=== PATIENT | female | born 1990 | race Caucasian/White ===

== ENCOUNTER 2017-01-09 23:43 | Emergency (ER) | payer OTHER ==
[~2017-01-09] VITALS: Ht 165.1 cm; Wt 50.8 kg
[2017-01-09 23:47] VITALS: BP 121/73
--- NOTE | 2017-01-09 23:52 | NUR ---
Patient ambulated to bed 06.
--- NOTE | 2017-01-10 | NUR ---
12 LEAD EKG DONE,REPORT NOTED BY ER-.
--- NOTE | 2017-01-10 00:01 | NUR ---
MD CAME BY BEDSIDE TO EVALUATE PT.
[2017-01-10] MEDS ORDERED: LORazepam 1 MG TAB PO ONE (00:05)
[2017-01-10] MEDS ORDERED: NACL 0.9% 1,000 ML IV ONE (00:05)
--- NOTE | 2017-01-10 00:15 | NUR ---
XRAY at bedside.
--- NOTE | 2017-01-10 00:20 | NUR ---
[id number] IV LINE ESTABLISHED TO THE RIGHT AC. NS 1 LITER @ 150 ML/HR AND ATIVAN 1 MG PO GIVEN ORDERED.
--- NOTE | 2017-01-10 00:24 | NUR ---
PORTABLE CXR DONE.
[2017-01-10 00:28] LABS: BASOPHILS # (AUTO) 0.3 K/uL (0.00-0.22); BASOPHILS % (AUTO) 3.4 % (0.0-2.0); EOSINOPHILS # (AUTO) 0.1 K/uL (0-0.4); EOSINOPHILS % (AUTO) 1.1 % (0.0-4.0); HEMATOCRIT 42.8 % (36-48); HEMOGLOBIN 14.1 g/dL (12.0-16.0); LYMPHOCYTES # (AUTO) 2.6 K/uL (2.5-16.5); LYMPHOCYTES % (AUTO) 32.1 % (20.5-51.1); MEAN CORPUSCULAR HEMOGLOBIN 29 pg (27-31); MEAN CORPUSCULAR HGB CONC 33 g/dL (33-37); MEAN CORPUSCULAR VOLUME 88 fL (80-94); MONOCYTES # (AUTO) 0.5 K/uL (0.8-1.0); MONOCYTES % (AUTO) 6.9 % (1.7-9.3); NEUTROPHILS # (AUTO) 4.5 K/uL (1.8-7.7); NEUTROPHILS % (AUTO) 56.5 % (42.2-75.2); PLATELET COUNT (AUTO) 168 K/uL (140-450); RED BLOOD CELL COUNT(AUTO) 4.86 MIL/uL (4.20-5.40); RED CELL DISTRIBUTION WIDTH 12.3 % (11.6-13.7)
[2017-01-10 00:36] LABS: APPEARANCE,URINE CLEAR (CLEAR); BILIRUBIN,URINE NEGATIVE (NEGATIVE); BLOOD, URINE 2+ (NEGATIVE); COLOR,URINE YELLOW (YELLOW); LEUKOCYTE ESTERASE ,URINE NEGATIVE (NEGATIVE); NITRITE, URINE NEGATIVE (NEGATIVE); UGLUCOSE NEGATIVE (NEGATIVE)
[2017-01-10 00:40] LABS: RBC,URINE 0-5 (RARE) /HPF (0-5); WBC,URINE 0-5 (RARE) /HPF (0-5)
[2017-01-10 00:44] LABS: BARBITURATE, URINE NEG. ng/ml (NEG <=200); BENZODIAZEPINE, URINE NEG. ng/mL (NEG <=200); CANNABINOID, URINE POS. ng/mL (NEG <=50); COCAINE, URINE NEG. ng/mL (NEG <=300); OPIATE, URINE POS. ng/mL (NEG <=2000); PHENCYCLIDINE SCREEN,URINE NEG. ng/mL (NEG <=25)
[2017-01-10 00:44] LABS: ALBUMIN 4.1 g/dL (3.4-5.0); ANION GAP 13.1 (8-16); CARBON DIOXIDE 30.3 mmol/L (21-32); CREATININE 0.7 mg/dL (0.6-1.3); POTASSIUM 3.4 mmol/L (3.5-5.1); TOTAL BILIRUBIN 0.4 mg/dL (0.0-1.0)
--- NOTE | 2017-01-10 01:27 | NUR ---
MD BACK AT BEDSIDE TO RE-EVALAUTE AND DISCUSS PLAN OF CARE WITH PATIENT.
--- NOTE | 2017-01-10 01:37 | NUR ---
Patient discharged with v/s stable. Written and verbal after care instructions given and explained. Patient verbalized understanding. Ambulatory with steady gait. All questions addressed prior to discharge. Advised to follow up with PMD.
[2017-01-10 01:40] VITALS: BP 142/73
== END 2017-01-10 01:37 | disposition home or self-care (01) ==
LOC: MED 23:43
DX: R07.89 Other chest pain (principal); F19.10 Other psychoactive substance abuse, uncomplicated; F12.10 Cannabis abuse, uncomplicated; F41.9 Anxiety disorder, unspecified; F17.210 Nicotine dependence, cigarettes, uncomplicated
CPT/HCPCS: 36415; 71010; 80053; 80305; 81001; 81025; 83880; 84484; 85025; 96360; 99285; Q0092

== ENCOUNTER 2018-04-20 16:45 | Emergency (ER) | payer MEDICAID, OTHER ==
[~2018-04-20] VITALS: Ht 167.6 cm; Wt 59.0 kg
[2018-04-20 16:56] VITALS: BP 122/74
[2018-04-20 18:30] VITALS: BP 119/82
== END 2018-04-20 18:30 | disposition home or self-care (01) ==
LOC: MED 16:45
DX: L70.9 Acne, unspecified (principal); M79.641 Pain in right hand; M79.642 Pain in left hand
CPT/HCPCS: 99283

== ENCOUNTER 2019-02-11 04:15 | Emergency (ER) | payer OTHER ==
[~2019-02-11] VITALS: Ht 167.6 cm; Wt 54.9 kg
[2019-02-11 04:23] VITALS: BP 127/80
== END 2019-02-11 04:51 | disposition left against medical advice (07) ==
LOC: MED 04:15
DX: R07.9 Chest pain, unspecified (principal); Z53.21 Procedure and treatment not carried out due to patient leaving prior to being seen by health care provider

== ENCOUNTER 2019-05-03 05:25 | Emergency (ER) | payer OTHER ==
[~2019-05-03] VITALS: Ht 167.6 cm; Wt 59.0 kg
--- NOTE | 2019-05-03 05:25 | NUR ---
PT BIBA BLS. TAKEN TO BED 9
[2019-05-03 05:33] VITALS: BP 115/70
--- NOTE | 2019-05-03 05:33 | NUR ---
29 Y/O FEMALE C/O SHARP CHEST PAIN X 1 MONTH. ADMITS TO METH USE X 1 HR AGO. PAIN IS 5/10 AT THIS TIME. A/OX4 AND FOLLOWS COMMANDS; <3 SECONDS CAPILLARY REFILL. PATIENT ADMITS TO TAKING ZYPREXA. DENIES N/V/D. BREATHING UNLABORED AND SYMMETRICAL 97% ON RA; RR17. ERMD MADE AWARE OF STATUS. SIDE RAILSX1. WILL CONTINUE TO MONITOR. PMH:DENIES RX:ZYPREXA NKDA Addendum: 05/03/19 at 0706 by MEDDI PMH: BIPOLAR RX:ZYPREXA NKDA
--- NOTE | 2019-05-03 05:39 | NUR ---
Dr. Simon examining patient.
--- NOTE | 2019-05-03 06:07 | NUR ---
PATIENT IS RESTING WITH EYES CLOSED. LIGHTS DIMMED. WILL CONTINUE TO MONITOR.
--- NOTE | 2019-05-03 06:20 | NUR ---
PATIENT STATES, " I FEEL SUICIDAL. I DIDN'T TELL AMBULANCE BECAUSE I WAS SCARED TO TELL THEM. I HAVE A PLAN TO TAKE MY WHOLE BOTTLE OF ZYPREXA. I DON'T FEEL SAFE AT HOME BECAUSE I FEEL PARANOID, BUT I FEEL SAFE HERE". ERMD MADE AWARE OF SITUATION. WILL CONTINUE TO MONITOR PATIENT.
--- NOTE | 2019-05-03 06:36 | NUR ---
PT MOVED TO BED 5
--- NOTE | 2019-05-03 06:49 | NUR ---
TELEPSYCH INITIATED PER DR. Gabriel HUYNH
[2019-05-03 06:54] LABS: BASOPHILS % (AUTO) 0.6 % (0.0-2.0); EOSINOPHILS # (AUTO) 0.1 K/uL (0-0.4); EOSINOPHILS % (AUTO) 2.1 % (0.0-4.0); HEMATOCRIT 37.1 % (36-48); LYMPHOCYTES # (AUTO) 1.3 K/uL (2.5-16.5); LYMPHOCYTES % (AUTO) 19.6 % (20.5-51.1); MEAN CORPUSCULAR HEMOGLOBIN 25 pg (27-31); MEAN CORPUSCULAR HGB CONC 32 g/dL (33-37); MEAN CORPUSCULAR VOLUME 77.4 fL (80-94); MONOCYTES # (AUTO) 0.5 K/uL (0.8-1.0); NEUTROPHILS # (AUTO) 4.6 K/uL (1.8-7.7); NEUTROPHILS % (AUTO) 69.7 % (42.2-75.2); PLATELET COUNT (AUTO) 202 K/uL (140-450); RED BLOOD CELL COUNT(AUTO) 4.79 MIL/uL (4.20-5.40); RED CELL DISTRIBUTION WIDTH 16.7 % (11.6-13.7); WHITE BLOOD COUNT (AUTO) 6.6 K/uL (4.8-10.8)
--- NOTE | 2019-05-03 07:00 | NUR ---
PATIENT IS SITTING QUIETLY IN BED. 1:1 AT BEDSIDE. WILL CONTINUE TO MONITOR.
--- NOTE | 2019-05-03 07:01 | NUR ---
Pt report given to MYRNA LONG. Transfer of care at this time.
--- NOTE | 2019-05-03 07:02 | NUR ---
ASSUMED CARE OF PATIENT FROM MYRNA NICHOLS. PT IS SLEEPING AROUSABLE TO NAME.
--- NOTE | 2019-05-03 07:44 | NUR ---
CHANGED INTO GOWN. ENCOURAGED TO PROVIDE URINE SAMPLE. BREAKFAST TRAY PROVIDED.
--- NOTE | 2019-05-03 08:00 | NUR ---
AMBULATORY TO RESTROOM. URINE SAMPLE PROVIDED.
--- NOTE | 2019-05-03 09:07 | NUR ---
REMAINS ASLEEP, AROUSABLE TO NAME. NO DISTRESS. CONSUMED 60% OF BREAKFAST TRAY
--- NOTE | 2019-05-03 09:49 | NUR ---
PT ATE 100% OF BREAKFAST--RESTING WITH ARMS FOLDED OVER HER HEAD---AWAITS TELEPSYCH EVAL. SITTER REMAINS AT BEDSIDE.
[2019-05-03 09:50] LABS: ANION GAP 18.2 (8-16); CARBON DIOXIDE 26.6 mmol/L (21-32); CHLORIDE 100 mmol/L (98-107); POTASSIUM 3.8 mmol/L (3.5-5.1); SODIUM SERUM 141 mmol/L (136-145)
[2019-05-03 09:51] LABS: CREATININE 0.7 mg/dL (0.6-1.3); GFR ARICAN-AMERICAN 129 mL/min (>90); GLUCOSE 116 mg/dL (74-106); TOTAL BILIRUBIN 0.3 mg/dL (0.0-1.0); UREA NITROGEN, BLOOD 13 mg/dL (7-18)
[2019-05-03 09:52] LABS: ACETAMINOPHEN < 0.5 ug/ml (10-30); ALBUMIN 3.7 g/dL (3.4-5.0); ASPARTATE AMINOTRANSFERASE 28 U/L (15-37); SALICYLATE 3.3 mg/dL (2.8-20.0)
--- NOTE | 2019-05-03 10:16 | NUR ---
Cade potts in [facility] - 05/03/19 at 1017 by EVE W/C ASSIST TO RESTROOM.
--- NOTE | 2019-05-03 10:45 | NUR ---
AT THIS TIME PATIENT STATES "I JUST SAID I WAS SUICIDAL BECAUSE THEY WANTED TO DISCHARGE ME EARLIER AND THEY WOKE ME UP, I DON'T WANT TO KILL MYSELF, I LIED." ER MD HERNANDEZ AWARE.
--- NOTE | 2019-05-03 10:52 | NUR ---
DR HERNANDEZ SPEAKING WITH PATIENT.
--- NOTE | 2019-05-03 10:53 | NUR ---
PER DR HERNANDEZ PT IS MEDICALLY CLEAR AND SAFE TO DISCHARGE.
--- NOTE | 2019-05-03 10:57 | NUR ---
CONFIRMED WITH PATIENT THAT SHE IS NOT SUCIDAL. PT DENIES ANY SI/HI AT THIS TIME. REPEATS ONCE AGAIN, "I JUST SAID THAT BECAUSE THEY WANTED TO SEND DISCHARGE ME EARLIER"
--- NOTE | 2019-05-03 11:01 | NUR ---
IV removed, catheter intact and site benign. Applied folded 4x4 gauze and tape to stop bleeding.
--- NOTE | 2019-05-03 11:05 | NUR ---
ALL BELONGINGS RETURNED TO PATIENT.
[2019-05-03 11:06] VITALS: BP 116/63
--- NOTE | 2019-05-03 11:06 | NUR ---
Patient discharged with v/s stable. Written and verbal after care instructions given and explained. Patient verbalized understanding. Ambulatory with steady gait. All questions addressed prior to discharge. Advised to follow up with PMD. Pt free from suicidal and homocidal ideation.
[2019-05-03 11:35] LABS: BARBITURATE, URINE NEG. ng/ml (NEG <=200); BENZODIAZEPINE, URINE NEG. ng/mL (NEG <=200); CANNABINOID, URINE POS. ng/mL (NEG <=50); COCAINE, URINE NEG. ng/mL (NEG <=300); OPIATE, URINE POS. ng/mL (NEG <=2000); PHENCYCLIDINE SCREEN,URINE NEG. ng/mL (NEG <=25)
== END 2019-05-03 11:06 | disposition home or self-care (01) ==
LOC: MED 05:25
DX: R07.9 Chest pain, unspecified (principal); F15.10 Other stimulant abuse, uncomplicated; R45.851 Suicidal ideations; F32.9 Major depressive disorder, single episode, unspecified
CPT/HCPCS: 36415; 80053; 80305; 81002; 81025; 85025; 93005; 99284; G0480; G0482